=== PATIENT | female | born 1980 | race Caucasian/White ===

== ENCOUNTER 2022-10-13 09:06 | Outpatient (CLI) | payer OTHER, SELFPAY ==
[2022-10-13 09:44] LABS: Hematocrit 37.2 % (37.0-47.0); Hemoglobin 12.3 g/dL (12.0-15.0); Mean Corpuscular HGB Conc 33.1 g/dl (32-36); Mean Corpuscular Hemoglobin 31.5 pg (26-34); Mean Corpuscular Volume 95.4 fl (80-100); Mean Platelet Volume 10.8 fl (7.4-10.4); Platelet Count Result 176 k/mm3 (150-375); Red Cell Distribution Width 12.2 % (11.5-14.5); White Blood Count 4.8 K/mm3 (4.5-10.0)
[2022-10-13 09:56] LABS: Alanine Aminotransferase 13 U/L (6-35); Albumin Level 4.7 g/dL (3.5-5.1); Alkaline Phosphatase 51 U/L (38-126); Amylase 86 U/L (30-110); Anion Gap 4 mmol/L (8-16); Aspartate Amino Transferase 20 U/L (14-36); Bilirubin,Total 0.8 mg/dL (0.2-1.3); Blood Urea Nitrogen 11 mg/dL (7-17); Calcium 9.2 mg/dL (8.4-10.2); Carbon Dioxide 28 mmol/L (22-30); Chloride 107 mmol/L (98-107); Estimated Glomerular Filt Rate > 60; Glucose 88 mg/dL (65-110); Lipase 73 U/L (23-300); Potassium 4.2 mmol/L (3.4-5.0); Sodium 139 mmol/L (137-145)
[2022-10-13 10:59] LABS: Thyroid Stimulating Hormone Reflex 0.765 uIU/mL (0.465-4.68)
== END 2022-10-13 09:07 | disposition home or self-care (01) ==
PROVIDERS: PCP Family Medicine; Visit Provider Nurse Practitioner
DX: R10.13 Epigastric pain (principal)
CPT/HCPCS: 36415; 80053; 82150; 83690; 84443; 85027

== ENCOUNTER 2022-11-17 00:30 | Day surgery (SDC) | payer OTHER, SELFPAY ==
[2022-11-07 13:47] VITALS: BMI 22.6
--- NOTE | 2022-11-16 14:57 | P.HP_ITS ---
History of Present Illness History of Present Illness Consent: Risks, benefits, and alternatives have been discussed and questions answered. Patient agrees to proceed with procedure. Chief complaint: epigastric pain Narrative: Rizwana Castellanos is a 42 year old female Was referred for investigation of ulcer symptoms. She apparently had an ulcer when she was in college. For the past year she has had epigastric pain after eating. She denies nausea or vomit ing. Sscw-son-lgtunmz meds did not help. For the past several months she has been on pantoprazole 40 mg b.i.d. and famotidine with some improvement. She has early satiety but is not losing weight. Review of Systems Review of Systems: All systems reviewed & are unremarkable except as noted in HPI and below PMFSH Past Medical History Medical History Arthritis Chronic constipation Decreased appetite Early satiety Epigastric pain Hyperlipidemia Surgical History Surgical History H/O gynecological procedure mirena iud removal and reinsertion 01/10/2022 Social History Social History Smoking status: Never smoker Alcohol intake: current Drinks per week: 3 Substance use type: does not use Living arrangements: with family Spiritual care concerns: No Meds Home Medications and Allergies Home Medications Medication Instructions Recorded Confirmed Type sertraline 100 mg tablet 100 mg PO DAILY 01/10/22 11/07/22 History buspirone 10 mg tablet 10 mg PO .prn 10/13/22 11/07/22 History famotidine 20 mg tablet 20 mg PO BID 10/13/22 11/07/22 History loratadine 10 mg tablet 10 mg PO DAILY 10/13/22 11/07/22 History pantoprazole 40 mg tablet,delayed 40 mg PO BID #60 tabs 10/13/22 11/07/22 Rx release Allergies Allergy/AdvReac Type Severity Reaction Status Date / Time amoxicillin Allergy Severe Rash Uncoded 11/17/22 07:54 Daypro Allergy Severe Rash Uncoded 11/17/22 07:54 Exam Const: General: alert Orientation/consciousness: patient oriented x3 Resp: Auscultation: clear to auscultation bilaterally Cardio: Rhythm: regular rhythm GI: GI Palp: Yes Soft to palpation and No Tenderness to palpation present (GI) Neuro: General: patient oriented x3 Assessment and Plan Assessment and plan (1) Epigastric pain: Code(s): R10.13 - Epigastric pain Status: Acute
[2022-11-17 07:55] VITALS: BP 119/82; PULSE 63; RESP 17; TEMP 36.4; O2SAT 100
[2022-11-17] MEDS: LACTATED RINGERS 1,000 ML 150 ML IV CONT (08:09)
--- NOTE | 2022-11-17 08:51 | P.PNAN_ITS ---
Anes - Initial Pre Proc Eval Procedure: Operation Date: 11/17/22 09:15 Proposed Procedures p Esophagogastroduodenoscopy - Mitul Butt MD Date/Time: 11/17/22 08:51 Surgeon: Mitul Butt MD Pre Op Diagnosis: epigastric pain Patient Data Age: 42 Gender: F Height: 1.6 m Weight: 58.8 kg Last Vital Signs Temp 36.4 C 11/17/22 07:55 Pulse 63 11/17/22 07:55 Resp 17 11/17/22 07:55 BP 119/82 11/17/22 07:55 Pulse Ox 100 11/17/22 07:55 O2 Del Method Room Air 11/17/22 07:55 Allergies Allergy/AdvReac Type Severity Reaction Status Date / Time amoxicillin Allergy Severe Rash Uncoded 11/17/22 07:54 Daypro Allergy Severe Rash Uncoded 11/17/22 07:54 Home Medications Medication Instructions Recorded Confirmed Type sertraline 100 mg tablet 100 mg PO DAILY 01/10/22 11/07/22 History buspirone 10 mg tablet 10 mg PO .prn 10/13/22 11/07/22 History famotidine 20 mg tablet 20 mg PO BID 10/13/22 11/07/22 History loratadine 10 mg tablet 10 mg PO DAILY 10/13/22 11/07/22 History pantoprazole 40 mg tablet,delayed 40 mg PO BID #60 tabs 10/13/22 11/07/22 Rx release Patient hx anesthesia problems: none Family hx anesthesia problems: none Results Review: All pre-operative results and documents have been reviewed as part of the pre- operative evaluation. [facility] Past Medical History Medical History Arthritis Chronic constipation Decreased appetite Early satiety Epigastric pain Hyperlipidemia Surgical History Surgical History H/O gynecological procedure mirena iud removal and reinsertion 01/10/2022 Social History Social History Smoking status: Never smoker Alcohol intake: current Drinks per week: 3 Substance use type: does not use Living arrangements: with family Spiritual care concerns: No Anes - Eval Final PreProcedure Day of Procedure 11/17/22 08:51 Patient weight: normal Heart: regular rate and rhythm Lungs: clear to auscultation Airway: Mallampati scale class II Neurological: alert and oriented Last oral intake: >/= 8 hours ASA classification: II Emergent: no Anesthetic plan: proceed Anesthesia type and monitoring: general GIVS and standard monitoring Results Review: All pre-operative results and documents have been reviewed as part of the pre- operative evaluation. Informed Consent: The patient's anesthetic plan and its attendant risks and benefits were discussed with the patient/family/POA. Questions were solicited and answers provided to the satisfaction of the patient/family/POA.
[2022-11-17 09:01] VITALS: BP 100/69; PULSE 54; RESP 17; O2SAT 98
[2022-11-17 09:11] VITALS: BP 125/88; PULSE 56; RESP 16; O2SAT 100
[2022-11-17 09:21] VITALS: BP 128/89; PULSE 54; RESP 20; O2SAT 100
== END 2022-11-17 09:30 | disposition home or self-care (01) ==
PROVIDERS: PCP Family Medicine; Visit Provider Internal Medicine Gastroenterology
PROC: 0DJ08ZZ Inspection of Upper Intestinal Tract, Via Natural or Artificial Opening Endoscopic (ICD-10-PCS; CPT 43235; principal; 2022-11-17 09:15)
DX: R10.13 Epigastric pain (principal); R68.81 Early satiety; Z87.11 Personal history of peptic ulcer disease
CPT/HCPCS: 43239; 88305; J2704; J7120

== ENCOUNTER 2022-12-08 10:20 | Outpatient (CLI) | payer OTHER, SELFPAY ==
--- NOTE | ~2022-12-08 | US_ITS ---
US abdomen limited INDICATION: Epigastric pain with nausea PROCEDURE: Realtime right upper abdominal ultrasound. COMPARISON: No prior studies for comparison. FINDINGS: The pancreas is normal without focal mass or pancreatic ductal dilation. Liver echotexture is normal without focal mass or intrahepatic biliary dilatation. There is normal directional flow i n the portal vein. The gallbladder is normal without stones, gallbladder wall thickening or pericholecystic fluid. Comm on bile duct measures 2.5 mm. No sonographic Bonner's sign. IMPRESSION: 1: Normal limited abdominal ultrasound. Reviewed, dictated and finalized at location L.
== END 2022-12-08 10:21 | disposition home or self-care (01) ==
PROVIDERS: PCP Family Medicine; Visit Provider Nurse Practitioner
DX: R10.13 Epigastric pain (principal); R11.0 Nausea; R68.81 Early satiety
CPT/HCPCS: 76705

== ENCOUNTER 2022-12-16 07:27 | Outpatient (CLI) | payer OTHER, SELFPAY ==
--- NOTE | ~2022-12-16 | NM_ITS ---
EXAM: NM gastric emptying study DATE: 12/16/2022 12:10 CDT INDICATION: Epigastric pain TECHNIQUE: A gastric emptying study was performed using the methodology of Jan ROBERT, et al. J Nucl Med 2007; 48:568-572. The patient was given a meal consisting of 2 scrambled eggs labeled with 1.0 m Ci Tc-99m sulfur colloid, 2 slices of toast, two packages of jam, and approximately 120 mL of water. Simultaneous anterior and posterior 1-min images of the abdomen were obtained with the patient supine at multiple time points over a total period of 4 hours. The geometric mean of anterior and posterior views was determined, and the percentage retention was calculated for each time point. COMPARISON: Ultrasound dated 12/08/2022. FINDINGS: Gastric retention of the radiotracer-labeled meal was 35%, 13%, and 1% at the 1-hour, 2-ho ur, and 4-hour time points, respectively. With this technique, apparent rapid gastric emptying is sug gested by <30% gastric retention at 1 hour. Delayed gastric emptying is defined by gastric retention of >90% at 1 hour, >60% retention at 2 hours, or >10% retention at 4 hours. IMPRESSION: 1. Normal gastric emptying. Reviewed, dictated and finalized at location B. IMPRESSION: 1. Normal gastric emptying.
[2022-12-16 10:16] LABS: HIV 1/2 Ab P24 Ag Result Negative (Negative)
[2022-12-16 10:26] LABS: Hepatitis B Surface Antigen Negative (Negative)
[2022-12-16 10:31] LABS: HAV RESULT Negative (Negative)
[2022-12-16 10:44] LABS: Hepatitis C Virus Antibody Negative (Negative)
[2022-12-19 11:48] LABS: Rapid Plasma Reagin Non-Reactive (NonReactive)
== END 2022-12-16 07:28 | disposition home or self-care (01) ==
PROVIDERS: PCP Family Medicine; Referring Provider Obstetrics & Gynecology; Visit Provider Nurse Practitioner
DX: R68.81 Early satiety (principal); R63.0 Anorexia; R10.13 Epigastric pain; A64 Unspecified sexually transmitted disease; R11.0 Nausea
CPT/HCPCS: 36415; 78264; 86592; 86695; 86696; 86703; 86709; 86803; 87340; A9541; G0432

== ENCOUNTER 2025-06-11 14:28 | Outpatient (CLI) | payer OTHER, SELFPAY ==
--- OUTSIDE RECORDS SUMMARY | 2015-03-04 04:40 | XMS_ITS | Continuity of Care Document ---
Author Organization [facility] ter Address [address] [address] Phone Care Team Providers Care Director Of Social Services Name Role Phone Sinek OD, David Unavailable Unavailable Allergies, Adverse Reactions, Alerts Substance Reaction Status Criticality Penicillins Hives Active No Information Medications Medication Instructions Dosage Effective Dates (start - stop) Status Comments prednisolone acetate 1 % eye drops,suspension instill 1 drop by ophthalmic route 4 times every day OD - Active ofloxacin 0.3 % eye drops instill 1 drop by ophthalmic route 4 times a day starting the day prior to surgery and continue for 7 days - Active MAALOX ADVANCED (unknown strength) take 10 milliliter by oral route between meals and at bedtime as needed Not Available - Active Procedures Procedure Date POSTOP FOLLOW-UP VISIT Advance Directives Directive Yes / No Effective Date File Name No Information Encounters Encounter Description Practice Location Reason(s) For Visit Diagnoses Date Provider [facility], [address] [place] [address] Tyra Hammer, [place], [id number], tel:[phone] [place] vision is improved OD (chief complaint) Follow-up examination, following unspecified surgery Sinek David. [address] [place], [address], [place]. tel:[phone] [address] [place] [address] Tyra Hammer [place], [id number], tel:[phone] [place] pt states va is good OD (chief complaint) No Information Sinek David. [address] [place], [address], . tel:[phone] [address] [place] [address] Tyra Hammer [place], [id number], tel:[phone] [facility] patient slept well OD (chief complaint) No Information Christi Hernandez. [address] [place], [address], [place]. tel:[phone] [facility] [place], [address] [place], [id number], tel:[phone] [facility] No Information No Information [facility] [place], [facility] [place], [place], [id number], tel:[phone] [facility] No Information No Information [facility] [place], [facility] [address] [place], [address], tel:[phone] [facility] No Information [facility] [place] L. [facility] [place], [id number], [place]. tel:[phone] [address] [place] [address] [facility] [place], [address] [place], [place], [id number], tel:[phone] [facility] No Information No Information [facility], [facility] [place], [id number], tel:[phone] [place] cataract evaluation (chief complaint) Posterior subcapsular polar nonsenile cataract No Information [facility], [facility] [place], [place], [address], tel:[phone] [place] Change in vision OD (chief complaint) Cataract, Cortical Ileana Paz. [address] [place], [address], . tel:[phone] Family History Family Member Type Diagnosis Age At Onset Problem (finding) Family history of catar act Problem (finding) Family history of Diabe keke mellitus Problem (finding) Family history of strok e Problem (finding) Family history of Cance r, brain Payers Payer name Insurance type Covered republican ID Authoriza tion(s) No Information Social History Type Description Quantity Date Captured Comments Sex Female Smoking Status No Information Chief Complaint And Reason For Visit From encounter dated '03/04/2015 10:40'. vision is improved OD (chief complaint). Description: vision is improved OD Plan Of Treatment Date Type Action Status Patient Education Cataract Surgery: What to Expect at completed History Of Present Illness Encounter Date Complaint History Of Prese nt Illness vision is improved vision is imp roved OD no complaints no complaints OD pt states little achy last 2 day s pt states little achy last 2 days OD pt states va is good pt states v a is good OD Some discomfort this AM Some dis comfort this AM OD patient slept well patient slept well OD cataract evaluation The 34 year old female presents for evaluation of cataract evaluation in the right eye. It started about 6 month(s) ago. It occurs all the time. The onset was gradual. It affects distance vision. The symptom is constant. The condition is moderate. The condition is described as blurring. In addition, the condition is associated with driving with oncoming lights. Patient denies eye pain, flashes and floaters. Associated symptoms include: headaches. Change in vision OD Pt presents for an evaluation of a change in VA OD. Pt. states while taking allergy medications there was a drastic change in glass rx OD. Pts. VA went to 20/20 OD. Since stopping meds VA is worsening OD. Pt is photophobic. No flashes/floaters/ pain. Instructions Date Instruction Additional Infor orestes - Cataracts account for the patient's complaints. Discussed all risks, benefits, procedures and recovery. Patient understands changing glasses will not improve vision. Patient desires to have surgery, recommend phacoemulsification with intraocular lens right eye. RL 2. Discussed IOL options, consider ReSTOR IOL. Related to Posterior subcapsular polar nonsenile cataract - Ascan then CE IOL OD Related t o Posterior subcapsular polar nonsenile cataract - Subtle cortical le ns changes are seen in the right eye that are not seen in the left. A-scan and topography are normal. Cyclopegic refraction shows -0.50 SE OD and -3.00SE OS Related to Cataract, Cortical - Return in PRN. I w ill consult with one of the cataract surgeons to see if they think this is a reasonable explanation. Related to Cataract, Cortical Assessments Type Assessment Date No Information
--- OUTSIDE RECORDS SUMMARY | 2015-03-04 04:40 | XMS_ITS | Continuity of Care Document ---
Author Organization [facility] ter Address [address] [place] [address] Phone Care Team Providers Care Freight Forwarder Name Role Phone Sinek OD, David Unavailable [...] Location Reason(s) For Visit Diagnoses Date Provider [facility], [address] [place] [address] Tyra Hammer, [place], [id number], tel:[phone] [place] vision is improved OD (chief complaint) Follow-up examination, following unspecified surgery Sinek David. [address] [email or web address], [address], [place]. tel:[phone] [place] [address] Tyra Hammer [place], [id number], tel:[phone] Mass[place] pt states va is good OD (chief complaint) No Information Sinek David. [address] [place], [address], . tel:[phone] [address] [place] [address] Tyra Hammer [place], [id number], tel:[phone] [facility] patient slept well OD (chief complaint) No Information Christi Hernandez. [address] [place], [address], [place]. tel:[phone] [facility] [place], [address] [place], [address], tel:[phone] [facility] No Information No Information [facility] [place], [facility] [place], [place], [address], tel:[phone] [facility] No Information No Information [facility] [place], [facility] [address] [place], [address], tel:[phone] [facility] No Information [facility] [place] L. [facility] [place], [id number], [place]. tel:[phone] [address] [place] [address] [facility] [place], [address] [place], [place], [id number], tel:[phone] [facility] No Information No Information [facility], [facility] [place], [address], tel:[phone] [place] cataract evaluation (chief complaint) Posterior subcapsular polar nonsenile cataract No Information [facility], [facility] [place], [place], [address], tel:[phone] [place] Change in vision OD (chief complaint) Cataract, Cortical Ileana Paz. [address] [place], [address], . tel:[phone] Family History Family Member Type Diagnosis Age At Onset Problem (finding) Family history of catar act Problem (finding) Family history of Diabe keke mellitus Problem (finding) Family history of strok e Problem (finding) Family history of Cance r, brain Payers Payer name Insurance type Covered constitution party ID Authoriza tion(s) No Information Social History [...]
--- OUTSIDE RECORDS SUMMARY | 2015-03-04 04:40 | XMS_ITS | Continuity of Care Document ---
Author Organization [facility] ter Address [address] [place] [address] Phone Care Team Providers Care Wallpaperer Helper Name Role Phone Sinek OD, David Unavailable [...] Location Reason(s) For Visit Diagnoses Date Provider [facility], [address] [place] [address] Tyra Hammer, [place], [id number], tel:[phone] [place] vision is improved OD (chief complaint) Follow-up examination, following unspecified surgery Sinek David. [address] [place], [address], [place]. tel:[phone] [address] [place] [address] Tyra Hammer [place], [id number], tel:[phone] [place] pt states va is good OD (chief complaint) No Information Sinek David. [address] [place], [address], . tel:[phone] [address] [place] [address] Tyra Hammer [place], [id number], tel:[phone] [facility] patient slept well OD (chief complaint) No Information Christi Hernandez. [address] [place], [address], [place]. tel:[phone] [facility] [place], [address] [place], [id number], tel:[phone] [facility] No Information No Information [facility] [place], [facility] [place], [place], [address], tel:[phone] [facility] No Information No Information [facility] [place], [facility] [address] [place], [address], tel:[phone] [facility] No Information [facility] [place] L. [facility] [place], [id number], [place]. tel:[phone] [place] [address] [facility] [place], [address] [place], [place], [address], tel:[phone] [facility] No Information No Information [facility], [facility] [address] [place], [place], [address], tel:[phone] [place] cataract evaluation (chief complaint) Posterior subcapsular polar nonsenile cataract No Information [facility], [facility] [place], [place], [address], tel:[phone] [place] Change in vision OD (chief complaint) Cataract, Cortical Ileana Paz. [address] [place], [address], . tel:[phone] Family History Family Member Type Diagnosis Age At Onset Problem (finding) Family history of catar act Problem (finding) Family history of Diabe keke mellitus Problem (finding) Family history of strok e Problem (finding) Family history of Cance r, brain Payers Payer name Insurance type Covered democrat ID Authoriza tion(s) No Information Social History [...]
--- OUTSIDE RECORDS SUMMARY | 2015-03-04 04:40 | XMS_ITS | Continuity of Care Document ---
Author Organization [facility] ter Address [address] [place] [address] Phone Care Team Providers Care Business Continuity Director Name Role Phone Sinek OD, David Unavailable [...] Location Reason(s) For Visit Diagnoses Date Provider [facility], [address] [place] [address] Tyra Hammer, [place], [id number], tel:[phone] [place] vision is improved OD (chief complaint) Follow-up examination, following unspecified surgery Sinek David. [address] [place], [address], [place]. tel:[phone] [place] [address] Tyra Hammer [place], [id number], tel:[phone] Massimo pt states va is good OD (chief complaint) No Information Sinek David. [address] [place], [address], . tel:[phone] [address] [place] [address] Tyra Hammer [place], [id number], tel:[phone] [facility] patient slept well OD (chief complaint) No Information Christi Hernandez. [address] [place], [address], [place]. tel:[phone] [facility] [place], [address] [place], [address], tel:[phone] [facility] No Information No Information [facility] [place], [facility] [place], [place], [address], tel:[phone] [facility] No Information No Information [facility] [place], [facility] [address] [place], [place], [address], tel:[phone] [facility] No Information [facility] [place] L. [facility] [place], [place], [address], [place]. tel:[phone] [place] [address] [facility] [place], [address] [place], [place], [address], tel:[phone] [facility] No Information No Information [facility], [facility] [place], [place], [address], tel:[phone] [place] cataract evaluation (chief complaint) Posterior subcapsular polar nonsenile cataract No Information [facility], [facility] [place], [place], [address], tel:[phone] [place] Change in vision OD (chief complaint) Cataract, Cortical Ileana Paz. [address] [place], [address], . tel:[phone] Family History Family Member Type Diagnosis Age At Onset Problem (finding) Family history of catar act Problem (finding) Family history of Diabe keke mellitus Problem (finding) Family history of strok e Problem (finding) Family history of Cance r, brain Payers Payer name Insurance type Covered green party ID Authoriza tion(s) No Information Social [...]
--- OUTSIDE RECORDS SUMMARY | 2015-03-04 04:40 | XMS_ITS | Continuity of Care Document ---
Author Organization [facility] ter Address [address] [address] [facility] [place] [address] Phone Care Team Providers Care Linux System Administrator Name Role Phone Sinek OD, David Unavailable [...] Location Reason(s) For Visit Diagnoses Date Provider [facility], [address] [place] [address] Tyra Hammer, [place], [id number], tel:[phone] [place] vision is improved OD (chief complaint) Follow-up examination, following unspecified surgery Sinek David. [address] [place], [address], [place]. tel:[phone] [address] [place] [address] Tyra Hammer [place], [id number], tel:[phone] Mass[place] pt states va is good OD (chief complaint) No Information Sinek David. [address] [place], [address], . tel:[phone] [place] [address] Tyra Hammer [place], [id number], tel:[phone] [facility] patient slept well OD (chief complaint) No Information Christi Hernandez. [address] [place], [address], [place]. tel:[phone] [facility] [place], [address] [place], [address], tel:[phone] [facility] No Information No Information [facility] [place], [facility] [address] [place], [address], tel:[phone] [facility] No Information No Information [facility] [place], [facility] [address] [place], [address], tel:[phone] [facility] No Information [facility] [place] L. [facility] [address] [place], [address], [place]. tel:[phone] [place] [address] [facility] [place], [address] [place], [address], tel:[phone] [facility] No Information No Information [facility], [facility] [address] [place], [address], tel:[phone] [place] cataract evaluation (chief complaint) Posterior subcapsular polar nonsenile cataract No Information [facility], [facility] [place], [place], [address], tel:[phone] [place] Change in vision OD (chief complaint) Cataract, Cortical Ileana Paz. [address] [place], [address], . tel:[phone] Family History Family Member Type Diagnosis Age At Onset Problem (finding) Family history of Cance r, brain Problem (finding) Family history of strok e Problem (finding) Family history of Diabe keke mellitus Problem (finding) Family history of catar act Payers Payer name Insurance type Covered republican [...] no complaints no complaints OD pt states va is good pt states v a is good OD pt states little achy last 2 day s pt states little achy last 2 days OD patient slept well patient slept well OD Some discomfort this AM Some dis comfort this AM OD cataract evaluation The 34 year old [...]
--- OUTSIDE RECORDS SUMMARY | 2015-03-04 04:40 | XMS_ITS | Continuity of Care Document ---
Author Organization [facility] ter Address [address] [place] [address] Phone Care Team Providers Care Machine Hoop Maker Helper Name Role Phone Sinek OD, David [...] Location Reason(s) For Visit Diagnoses Date Provider [facility], [address] [place] [address] Tyra Hammer, [place], [id number], tel:[phone] [place] vision is improved OD (chief complaint) Follow-up examination, following unspecified surgery Sinek David. [address] [place], [address], [place]. tel:[phone] [place] [address] Tyra Hammer [place], [address], tel:[phone] [place] pt states va is good OD (chief complaint) No Information Sinek David. [address] [place], [address], . tel:[phone] [address] [place] [address] Tyra Hammer [place], [id number], tel:[phone] [facility] patient slept well OD (chief complaint) No Information Christi Hernandez. [address] [place], [address], [place]. tel:[phone] [facility] [place], [address] [place], [address], tel:[phone] [facility] No Information No Information [facility] [place], [facility] [place], [place], [address], tel:[phone] [facility] No Information No Information [facility] [place], [facility] [address] [place], [place], [address], tel:[phone] [facility] No Information [facility] [place] L. [facility] [address] [place], [address], [place]. tel:[phone] [place] [address] [facility] [place], [address] [place], [place], [address], tel:[phone] [facility] No Information No Information [facility], [facility] [address] [place], [place], [address], tel:[phone] [place] cataract evaluation (chief complaint) Posterior subcapsular polar nonsenile cataract No Information [facility], [facility] [place], [place], [address], tel:[phone] [place] Change in vision OD (chief complaint) Cataract, Cortical Ileana Paz. [address] [place], [address], . tel:[phone] Family History Family Member Type Diagnosis Age At Onset Problem (finding) Family history of catar act Problem (finding) Family history of Diabe keke mellitus Problem (finding) Family history of strok e Problem (finding) Family history of Cance r, brain Payers Payer name Insurance type Covered alliance party ID Authoriza tion(s) No Information Social [...]
--- OUTSIDE RECORDS SUMMARY | 2015-03-04 04:40 | XMS_ITS | Continuity of Care Document ---
Author Organization [facility][Note 3] ter Address [address] [facility] [place] [address] Phone Care Team Providers Care Fourdrinier Wire Weaver Name Role Phone Sinek OD, David Unavailable [...] Location Reason(s) For Visit Diagnoses Date Provider [facility], [address] [place] [address] Tyra Hammer, [place], [id number], tel:[phone] Massimo vision is improved OD (chief complaint) Follow-up examination, following unspecified surgery Sinek David. [address] [place], [address], [place]. tel:[phone] [address] [place] [address] Tyra Hammer [place], [id number], tel:[phone] Massimo pt states va is good OD (chief complaint) No Information Sinek David. [address] [place], [address], . tel:[phone] [address] [place] [address] Tyra Hammer [place], [id number], tel:[phone] [facility] slept well OD (chief complaint) No Information Christi Hernandez. [address] [place], [address], [place]. tel:[phone] [facility] [place], [address] [place], [place], [id number], tel:[phone] [facility] No Information No Information [facility] [place], [facility] [place], [id number], tel:[phone] [facility] No Information No Information [facility] [place], [facility] [address] [place]ita [place], [place], [address], tel:[phone] [facility] No Information [facility] [place] L. [facility] [address] [place], [place], [address], [place]. tel:[phone] [address] [place] [address] [facility] [place], [address] [place], [place], [address], tel:[phone] [facility] No Information No Information [facility], [facility] [address] [place], [place], [address], tel:[phone] Massimo cataract evaluation (chief complaint) Posterior subcapsular polar nonsenile cataract No Information [facility], [facility] [place], [place], [address], tel:[phone] [place]imo Change in vision OD (chief complaint) Cataract, Cortical Ileana Paz. [address] [place], [address], . tel:[phone] Family History Family Member Type Diagnosis [...]
--- OUTSIDE RECORDS SUMMARY | 2015-03-04 04:40 | XMS_ITS | Continuity of Care Document ---
Author Organization [facility] ter Address [address] [place] [address] Phone Care Team Providers Care Amphibious Operations Officer Name Role Phone Sinek OD, David Unavailable [...] Reason(s) For Visit Diagnoses Date Provider [facility], [address] [place] [address] Tyra Hammer, [place], [id number], tel:[phone] Massimo vision is improved OD (chief complaint) Follow-up examination, following unspecified surgery Sinek David. [address] [place], [address], [place]. tel:[phone] [address] [place] [address] Tyra Hammer [place], [id number], tel:[phone] Massimo pt states va is good OD (chief complaint) No Information Sinek David. [address] [place], [address], . tel:[phone] [address] [place] [address] Tyra Hammer [place], [id number], tel:[phone] [facility] slept well OD (chief complaint) No Information Christi Hernandez. [address] [place], [address], [place]. tel:[phone] [facility] [place], [address] [place], [place], [address], tel:[phone] [facility] No Information No Information [facility] [place], [facility] [place], [address], tel:[phone] [facility] No Information No Information [facility] [place], [facility] [address] [place], [place], [address], tel:[phone] [facility] No Information [facility] [place] L. [facility]0 [address] [place], [place], [address], [place]. tel:[phone] [address] [place] [address] [facility] [place], [address] [place], [place], [address], tel:[phone] [facility] No Information No Information [facility], [facility] [address] [place], [place], [address], tel:[phone] Massimo cataract evaluation (chief complaint) Posterior subcapsular polar nonsenile cataract No Information [facility], [facility] [place], [place], [address], tel:[phone] [place] Change in vision OD (chief complaint) Cataract, Cortical Ileana Paz. [address] [place], [address], . tel:[phone] Family History Family Member Type Diagnosis [...]
--- OUTSIDE RECORDS SUMMARY | 2015-03-04 04:40 | XMS_ITS | Continuity of Care Document ---
Author Organization [facility] ter Address [address] [place] [address] Phone Care Team Providers Care Whiteprinting Machine Operator Name Role Phone Sinek OD, David Unavailable [...] Location Reason(s) For Visit Diagnoses Date Provider [facility], [address] [place] [address] Tyra Hammer, [place], [id number], tel:[phone] Mass[place] vision is improved OD (chief complaint) Follow-up examination, following unspecified surgery Sinek David. [address] [place], [address], [place]. tel:[phone] [address] [place] [address] Tyra Hammer [place], [id number], tel:[phone] Massimo pt states va is good OD (chief complaint) No Information Sinek David. [address] [place], [address], . tel:[phone] [address] [place] [address] Tyra Hammer [place], [id number], tel:[phone] [facility] slept well OD (chief complaint) No Information Christi Hernandez. [address] [place], [address], [place]. [phone] [facility] [place], [address] [place], [address], tel:[phone] [facility] No Information No Information [facility] [place], [facility] [place], [place], [address], tel:[phone] [facility] No Information No Information [facility] [place], [facility] [address] [place], [place], [address], tel:[phone] [facility] No Information [facility] [place] L. [facility]0 [address] [place], [address], [place]. tel:[phone] [place] [address] [facility] [place], [address] [place], [place], [id number], tel:[phone] [facility] No Information No Information [facility], [facility]0 [address] [place], [address], tel:[phone] Massimo cataract evaluation (chief complaint) Posterior subcapsular polar nonsenile cataract No Information [facility], [facility] [place], [place], [address], tel:[phone] Masismo Change in vision OD (chief complaint) Cataract, Cortical Ileana Paz. [address] [place], [address], . tel:[phone] Family History Family Member Type Diagnosis [...]
--- OUTSIDE RECORDS SUMMARY | 2015-03-04 04:40 | XMS_ITS | Continuity of Care Document ---
Author Organization [facility] ter Address [address] [facility] [place] [address] Phone Care Team Providers Care Traffic Circuit Engineer Name Role Phone Sinek OD, David Unavailable [...] Diagnoses Date Provider [facility], [address] [place] [address] Tyra Hammer, [place], [id number], tel:[phone] Mass[place] vision is improved OD (chief complaint) Follow-up examination, following unspecified surgery Sinek David. [address] [place], [address], [place]. tel:[phone] [address] [place] [address] Tyra Hammer [place], [id number], tel:[phone] Massimo pt states va is good OD (chief complaint) No Information Sinek David. [address] [place], [address], . tel:[phone] [address] [place] [address] Tyra Hammer [place], [id number], tel:[phone] [facility] patient slept well OD (chief complaint) No Information Christi Hernandez. [address] [place], [address], [place]. tel:[phone] [facility] [place], [address] [place], [place], [address], tel:[phone] [facility] No Information No Information [facility] [place], [facility] [place], [place], [address], tel:[phone] [facility] No Information No Information [facility] [place], [facility] [address] [place]ita [place], [address], tel:[phone] [facility] No Information [facility] [place] L. [facility]0 [address] [place], [place], [address], [place]. tel:[phone] [address] [place] [address] [facility] [place], [address] [place], [place], [address], tel:[phone] [facility] No Information No Information [facility], [facility] [address] [place], [place], [address], tel:[phone] Massimo cataract evaluation (chief complaint) Posterior subcapsular polar nonsenile cataract No Information [facility], [facility] [place], [place], [address], tel:[phone] [place]imo Change in vision OD (chief complaint) Cataract, Cortical Ileana Paz. [address] [place], [address], . tel:[phone] Family History Family Member Type Diagnosis Age At Onset Problem (finding) Family history of catar act Problem (finding) Family history of Diabe keke mellitus Problem (finding) Family history of strok e Problem (finding) Family history of Cance r, brain Payers Payer name Insurance type Covered libertarian ID Authoriza tion(s) No Information Social History [...]
--- OUTSIDE RECORDS SUMMARY | 2015-03-04 04:40 | XMS_ITS | Continuity of Care Document ---
Author Organization [facility] ter Address [address] [place] [address] Phone Care Team Providers Care International Organizer Name Role Phone Sinek OD, David Unavailable [...] Location Reason(s) For Visit Diagnoses Date Provider [facility], [address] [place] [address] Tyra Hammer, [place], [id number], tel:[phone] Massimo vision is improved OD (chief complaint) Follow-up examination, following unspecified surgery Sinek David. [address] [place], [address], [place]. tel:[phone] [address] [place] [address] Tyra Hammer [place], [id number], tel:[phone] Massimo pt states va is good OD (chief complaint) No Information Sinek David. [address] [place], [address], . tel:[phone] [address] [place] [address] Tyra Hammer [place], [address], tel:[phone] [facility] slept well OD (chief complaint) No Information Christi Hernandez. [address] [place], [address], [place]. tel:[phone] [facility] [place], [address] [place] [address] [place], [address], tel:[phone] [facility] No Information No Information [facility] [place], [facility] [place], [address], tel:[phone] [facility] No Information No Information [facility] [place], [facility] [address] [place] Chiquita [place], [place], [address], tel:[phone] [facility] No Information [facility] [place] L. [facility] [address] [place], [place], [address], [place]. tel:[phone] [address] [place] [address] [facility] [place], [address] [place], [place], [address], tel:[phone] [facility] No Information No Information [facility], [facility] [address] [place], [place], [address], tel:[phone] Massimo cataract evaluation (chief complaint) Posterior subcapsular polar nonsenile cataract No Information [facility], [facility] [place], [place], [address], tel:[phone] [place] Change in vision OD (chief complaint) Cataract, Cortical Ileana Paz. [address] [place], [address], . tel:[phone] Family History Family Member Type Diagnosis [...]
--- OUTSIDE RECORDS SUMMARY | 2015-03-04 04:40 | XMS_ITS | Continuity of Care Document ---
Author Organization [facility] ter Address [address] [facility] [place] [address] Phone Care Team Providers Care Human Resources Intern Name Role Phone Sinek OD, David Unavailable [...] Location Reason(s) For Visit Diagnoses Date Provider [facility], [address] [place] [address] Tyra Hammer, [place], [id number], tel:[phone] Massimo vision is improved OD (chief complaint) Follow-up examination, following unspecified surgery Sinek David. [address] [place], [address], [place]. tel:[phone] [address] [place] [address] Tyra Hammer [place], [id number], tel:[phone] Massimo pt states va is good OD (chief complaint) No Information Sinek David. [address] [place], [address], . tel:[phone] [address] [place] [address] Tyra Hammer [place], [id number], tel:[phone] [facility] slept well OD (chief complaint) No Information Christi Hernandez. [address] [place], [address], [place]. tel:[phone] [facility] [place], [address] [place], [address], tel:[phone] [facility] No Information No Information [facility] [place], [facility] [place], [place], [address], tel:[phone] [facility] No Information No Information [facility] [place], [facility] [address] [place]ita [place], [place], [address], tel:[phone] [facility] No Information [facility] [place] L. [facility]0 [address] [place], [address], [place]. tel:[phone] [place] [address] [facility] [place], [address] [place], [place], [address], tel:[phone] [facility] No Information No Information [facility], [facility]0 [address] [place], [place], [address], tel:[phone] Massimo cataract evaluation (chief complaint) Posterior subcapsular polar nonsenile cataract No Information [facility], [facility] [place], [place], [address], tel:[phone] [place] Change in vision OD (chief complaint) Cataract, Cortical Ileana Paz. [address] [place], [address], . tel:[phone] Family History Family Member Type Diagnosis [...]
--- OUTSIDE RECORDS SUMMARY | 2015-03-04 04:40 | XMS_ITS | Continuity of Care Document ---
Author Organization [facility] ter Address [address] [place] [address] Phone Care Team Providers Care Line Assembler Name Role Phone Sinek OD, David Unavailable [...] Provider [facility], [address] [place] [address] Tyra Hammer, [place], [address], tel:[phone] Massimo vision is improved OD (chief complaint) Follow-up examination, following unspecified surgery Sinek David. [address] [place], [address], [place]. tel:[phone] [address] [place] [address] Tyra Hammer [place], [address], tel:[phone] Massimo pt states va is good OD (chief complaint) No Information Sinek David. [address] [place], [address], . tel:[phone] [address] [place] [address] Tyra Hammer [place], [address], tel:[phone] [facility] slept well OD (chief complaint) No Information Christi Hernandez. [address] [place], [address], [place]. tel:[phone] [facility] [place], [address] [place], [place], [address], tel:[phone] [facility] No Information No Information [facility] [place], [facility] [place], [place], [address], tel:[phone] [facility] No Information No Information [facility] [place], [facility] [address] [place], [place], [address], tel:[phone] [facility] No Information [facility] [place] L. [facility]0 [address] [place]ra [place], [place], [address], [place]. tel:[phone] [address] [place] [address] [facility] [place], [address] [place], [place], [address], tel:[phone] [facility] No Information No Information [facility], [facility]0 [address] [place]ra [place], [place], [address], tel:[phone] Massimo cataract evaluation (chief complaint) Posterior subcapsular polar nonsenile cataract No Information [facility], [facility] [place], [place], [address], tel:[phone] [place] Change in vision OD (chief complaint) Cataract, Cortical Ileana Paz. [address] [place], [address], . tel:[phone] Family History Family Member Type Diagnosis [...]
--- NOTE | ~2025-06-11 | MM_ITS ---
EXAMINATION: MM screening jakob BI w wing HISTORY: Screening TECHNIQUE: Craniocaudal and mediolateral oblique 3-D tomosynthesis images were obtained and synthetic 2-D images were generated. CAD analysis was submitted and interpreted. COMPARISON: Baseline BREAST PARENCHYMAL COMPOSITION: Dense: The breasts are extremely dense, which lowers the sensitivity of mammography. FINDINGS: There is no evidence of suspicious mass, calcification, or architectural distortion to suggest malignancy in either breast. IMPRESSION: 1. No mammographic evidence of malignancy. 2. Recommend routine screening mammography in one year. BI-RADS Category 1: Negative Reviewed, dictated and finalized at location B. ATTENDANT
--- OUTSIDE RECORDS SUMMARY | 2025-06-11 22:08 | XMS_ITS | Data Portability ---
Author Organization [place] [facility] [employer], Main Office Address [address] [place] [address] Care Team Providers Care Concreting Supervisor Name Role Phone DANIEL MAJOR Primary Care Provider Assessment Encounter Date Assessment Date Assessment LastModified by Organization Details LastModified Time 10/02/2024 10/02/2024 43 yo F with - WELL ADULT VISIT - PIGMENTED SKIN LESIONS - HLD - ANXIETY - GERD - CHRONIC NECK PAIN - CHRONIC BACK PAIN - B/L HAND PAIN, chronic - POSITIVE YAYA (False positive) - H/O CATARACT - H/O HYPERCALEMIA Annual labs: 03/30/23. NM gastric scan: 12/16/22. US abdo: 12/08/22. Annual labs: 04/05/22. X-ray C,T,L spine: 10/12/21. RA workup: 05/14/21. YAYA, uric acid: 04/15/21. X-ray b/l hands: 04/01/21. Annual labs: 04/01/21. D/w pt in detail about her findings, recent labs & imagines and further plan of care. Will do routine labs. Will refer pt to Derm. All questions answered for pt. Meds as directed. Cont heat pack as directed prn. Diet and exercise explained. F/u with Derm as per schedule. Cont f/u with Counsellor as per schedule. Cont f/u with Ophtho as per schedule. Cont f/u with GI as per schedule. Pt has done PT in the past. Educated pt about alarming symptoms to monitor at home and call us back Or get checked in ED. Offered to refer to Rheumat; but pt declined. Pt declined for MRI/pain specialist referral. HM: WWE - 05/16, normal as per pt. Cont f/u with Gyne as per schedule. Mammo - 06/06/24, normal. EGD - 11/17/22, normal as per pt. Cont f/u with GI as per schedule. Flu - 06/16. Tdap - 03/31/21. Gardasil - Pt declined. F/u in 2-3 weeks. Annual labs in 10/16. [email or web address] Not available 10/02/2024 16:59:20 10/24/2024 10/24/2024 44 yo F with - LEUKOPENIA, new - HYPERCALEMIA - HLD - ANXIETY - GERD - CHRONIC NECK PAIN - CHRONIC BACK PAIN - B/L HAND PAIN, chronic - POSITIVE YAYA (False positive) - PIGMENTED SKIN LESIONS - H/O CATARACT Annual labs: 03/30/23. NM gastric scan: 12/16/22. US abdo: 12/08/22. Annual labs: 04/05/22. X-ray C,T,L spine: 10/12/21. RA workup: 05/14/21. YAYA, uric acid: 04/15/21. X-ray b/l hands: 04/01/21. Annual labs: 04/01/21. D/w pt in detail about her findings, recent labs & imagines and further plan of care. All questions answered for pt. Meds as directed. Cont heat pack as directed prn. Diet and exercise explained. F/u with Derm as per schedule. Cont f/u with Counsellor as per schedule. Cont f/u with Ophtho as per schedule. Cont f/u with GI as per schedule. Pt has done PT in the past. Educated pt about alarming symptoms to monitor at home and call us back Or get checked in ED. Offered to refer to Rheumat; but pt declined. Pt declined for MRI/pain specialist referral. HM: WWE - 05/16, normal as per pt. Cont f/u with Gyne as per schedule. Mammo - 06/06/24, normal. EGD - 11/17/22, normal as per pt. Cont f/u with GI as per schedule. Flu - 06/16. Tdap - 03/31/21. Gardasil - Pt declined. F/u in 3 months. CBC, Ca, PTH before next visit. Annual labs in 10/16. [email or web address] Not available 10/24/2024 09:39:32 01/20/2025 01/20/2025 44 yo F with - LEUKOPENIA, resolved - HYPERCALEMIA, resolved - HLD - ANXIETY - GERD - CHRONIC NECK PAIN - CHRONIC BACK PAIN - B/L HAND PAIN, chronic - POSITIVE YAYA (False positive) - PIGMENTED SKIN LESIONS - H/O CATARACT Annual labs: 10/03/24. Annual labs: 03/30/23. NM gastric scan: 12/16/22. US abdo: 12/08/22. Annual labs: 04/05/22. X-ray C,T,L spine: 10/12/21. RA workup: 05/14/21. YAYA, uric acid: 04/15/21. X-ray b/l hands: 04/01/21. Annual labs: 04/01/21. D/w pt in detail about her findings, recent labs & imagines and further plan of care. All questions answered for pt. Meds as directed. Cont heat pack as directed prn. Diet and exercise explained. Cont f/u with Derm as per schedule. Cont f/u with Counsellor as per schedule. Cont f/u with Ophtho as per schedule. Cont f/u with GI as per schedule. Pt has done PT in the past. Educated pt about alarming symptoms to monitor at home and call us back Or get checked in ED. Offered to refer to Rheumat; but pt declined. Pt declined for MRI/pain specialist referral. HM: WWE - 05/16, normal as per pt. Cont f/u with Gyne as per schedule. Mammo - 06/06/24, normal. EGD - 11/17/22, normal as per pt. Cont f/u with GI as per schedule. Flu - 06/16. Tdap - 03/31/21. Gardasil - Pt declined. F/u in 4-6 months. Annual labs in 10/16. [email or web address] Not available 01/20/2025 10:41:04 Plan of Treatment Reminders Order Date Submit Date Provider Last Modified By Organization Details Last Modified Time Details Appointments Any 15 2024 08:00A Mike Major MD Not available Not available Not available Lab PTH (parathyr oid hormone), intact + calcium, serum or plasma [address] (Lab), [address] [place], [address], 01/23/2025 12:50:15 CBC w/ auto diff 2024 025 [facility] (Lab), [address] [place], [address], 01/15/2025 12:59:55 vitamin D3, 25-hydrox y, serum 2024 025 [facility] (Lab), [address] [place], [address], 10/03/2024 13:37:17 vitamin B12 + folate, serum or blood [address] (Lab), [address] [place], [address], 10/25/2024 09:17:44 HbA1c (hemoglob in A1c), blood [address] (Lab), [address] [place], [address], 10/25/2024 09:17:44 CBC w/ auto diff 2024 025 [facility] (Lab), [address] [place], [address], 10/03/2024 12:53:24 CMP, serum or plasma 2024 025 [facility] (Lab), [address] [place], [address], 10/03/2024 13:25:20 lipid panel, serum 2024 025 [facility] (Lab), [address] [place], [address], 10/03/2024 13:25:24 TSH, serum, reflex free T4 [address] (Lab), [address] [place], [address], 10/25/2024 09:17:43 urinalysi s complete, reflex culture [address] (Lab), [address] [place], [address], 10/25/2024 09:17:44 Referral dermatolo gist referral - Please call patient to schedule an appointme nt. Thank you. 2024 025 [email or web address] Renetta Saenz MD (Dermatology) , [address], [address], [place], [address], 12/31/2024 09:33:01 Procedures None recorded. Surgeries None recorded. Imaging None recorded. Medication Orders sertralin e 100 mg tablet 2024 025 [facility] #87896, [address], [place], [id number], 01/20/2025 10:39:08 buspirone 10 mg tablet 2024 025 [facility] #68069, [address], [place], [id number], 01/20/2025 10:39:06 atorvasta tin 10 mg tablet 2024 025 [facility] #13031, [address], [place], [id number], 01/20/2025 10:39:00 sertralin e 100 mg tablet 2024 025 [email or web address] [facility] #76868, [address], [place], [id number], 10/24/2024 09:34:33 buspirone 10 mg tablet 2024 025 [facility] #13353, [address], [place], [place], [id number], 10/24/2024 09:34:17 atorvasta tin 10 mg tablet 2024 025 [facility] #52740, [address], [place], [place], [id number], 10/24/2024 09:34:17 sertralin e 100 mg tablet 2024 025 [facility] #67207, [address] [facility], [place], [place], [id number], 10/02/2024 16:52:48 buspirone 10 mg tablet 2024 025 [facility] #27512, [address], [place], [place], [id number], 10/02/2024 16:52:46 atorvasta tin 10 mg tablet 2024 025 [facility] #93617, [address] [facility], [place], [place], [id number], 10/02/2024 16:52:47 cephalexi n 500 mg capsule 2024 025 [email or web address] [facility] #87608, [address] [facility], [place], [place], [id number], 10/02/2024 16:56:30 Patient TargetsNo targets recorded. Patient Instructions Encounter Date Encounter Id Patient Instructions Last Modified By Organization Details Last Modified Time 10/02/2024 [id number] high cholesterol : care instructions [email or web address] Not available 10/02/2024 16:52:36 10/24/2024 [id number] high cholesterol : care instructions [email or web address] Not available 10/24/2024 09:34:11 01/20/2025 [id number] high cholesterol : care instructions [email or web address] Not available 01/20/2025 10:38:43 Reason for Referral Face And Fill Packer Referral for P igmented skin lesion Please call patient to schedule an appointment. Thank you. Referring Physician: Daniel Major, Family Medicine, Encounter Date: 10/02/2024 Results Created Date Observation Date Name Description Value Unit Range Abnormal Flag Note LastModifiedBy Organization Detail LastModifiedTime 10/04/1910/03/2024 CBC/C OMPLE TE BLD COUNT W/DIF F white blood cells 3.8 x10'3 /uL 4.2-10 .[address] [facility] (Lab) [address] [place], [address], 10/03/2024 12:53:24 10/04/19 25 10/03/2024 CBC/C OMPLE TE BLD COUNT W/DIF F red blood cells 4.42 x10'6 /uL 3.80-[address] [facility] (Lab) [address] [place], [address], 10/03/2024 12:53:24 10/04/19 25 10/03/2024 CBC/C OMPLE TE BLD COUNT W/DIF F hemoglobin 14.4 g/dL 12.0-[address] [facility] (Lab) [address] [place], [address], 10/03/2024 12:53:24 10/04/19 25 10/03/2024 CBC/C OMPLE TE BLD COUNT W/DIF F hematocrit 42.4 % 35.7-[address] [facility] (Lab) [address] [place], [address], 10/03/2024 12:53:24 10/04/19 25 10/03/2024 CBC/C OMPLE TE BLD COUNT W/DIF F mean red cell volume 95.9 fL 82.0-[address] [facility] (Lab) [address] [place], [address], 10/03/2024 12:53:24 10/04/19 25 10/03/2024 CBC/C OMPLE TE BLD COUNT W/DIF F mean red cell hemoglobin 32.6 pg 27.0-[address] [facility] (Lab) [address] [place], [address], 10/03/2024 12:53:24 10/04/19 25 10/03/2024 CBC/C OMPLE TE BLD COUNT W/DIF F mean RBC HGB concentratio n 34.0 g/dL 31.0-[address] [facility] (Lab) [address] [place], [address], 10/03/2024 12:53:24 10/04/19 25 10/03/2024 CBC/C OMPLE TE BLD COUNT W/DIF F red cell distribution width 12.5 % 11.8-[address] [facility] (Lab) [address] [place], [address], 10/03/2024 12:53:24 10/04/19 25 10/03/2024 CBC/C OMPLE TE BLD COUNT W/DIF F platelets 210 x10'3 /uL 150-[address] [facility] (Lab) [address] [place], [address], 10/03/2024 12:53:24 10/04/19 25 10/03/2024 CBC/C OMPLE TE BLD COUNT W/DIF F mean platelet volume 11.4 fL 9.0-[address] [facility] (Lab) [address] [place], [address], 10/03/2024 12:53:24 10/04/19 25 10/03/2024 CBC/C OMPLE TE BLD COUNT W/DIF F neutrophils 43.1 % 39.0-7 2.0 Not Available [facility] (Lab) [address] [place], [address], 10/03/2024 12:53:24 10/04/19 25 10/03/2024 CBC/C OMPLE TE BLD COUNT W/DIF F lymphocytes 44.8 % 16.0-4 7.0 Not Available [facility] (Lab) [address] [place], [address], 10/03/2024 12:53:24 10/04/19 25 10/03/2024 CBC/C OMPLE TE BLD COUNT W/DIF F monocytes 8.4 % 5.0-[address] [facility] (Lab) [address] [place], [address], 10/03/2024 12:53:24 10/04/19 25 10/03/2024 CBC/C OMPLE TE BLD COUNT W/DIF F eosinophils 1.8 % 1.0-7. 0 Not Available [facility] (Lab) [address] [place], [address], 10/03/2024 12:53:24 10/04/19 25 10/03/2024 CBC/C OMPLE TE BLD COUNT W/DIF F basophils 1.6 % 0.0-2. 0 Not Available [facility] (Lab) [address] [place], [address], 10/03/2024 12:53:24 10/04/19 25 10/03/2024 CBC/C OMPLE TE BLD COUNT W/DIF F immature granulocytes 0.3 % 0.00-[address] [facility] (Lab) [address] [place], [address], 10/03/2024 12:53:24 10/04/19 25 10/03/2024 CBC/C OMPLE TE BLD COUNT W/DIF F neutrophils, absolute count 1.65 x10'3 /uL 1.5-8. [address] [facility] (Lab) [address] [place], [address], 10/03/2024 12:53:24 10/04/19 25 10/03/2024 CBC/C OMPLE TE BLD COUNT W/DIF F lymphocytes, absolute count 1.71 x10'3 /uL 1.07-[address] [facility] (Lab) [address] [place], [address], 10/03/2024 12:53:24 10/04/19 25 10/03/2024 CBC/C OMPLE TE BLD COUNT W/DIF F monocytes, absolute count 0.32 x10'3 /uL 0.29-[address] [facility] (Lab) [address] [place], [address], 10/03/2024 12:53:24 10/04/19 25 10/03/2024 CBC/C OMPLE TE BLD COUNT W/DIF F eosinophils, absolute count 0.07 x10'3 /uL 0.02-[address] [facility] (Lab) [address] [place], [address], 10/03/2024 12:53:24 10/04/19 25 10/03/2024 CBC/C OMPLE TE BLD COUNT W/DIF F basophils, absolute count 0.06 x10'3 /uL 0.01-[address] [facility] (Lab) [address] [place], [address], 10/03/2024 12:53:24 10/04/19 25 10/03/2024 CBC/C OMPLE TE BLD COUNT W/DIF F immature granulocytes ,absolute 0.01 x10'3 /uL 0.00-[address] [facility] (Lab) [address] [place], [address], 10/03/2024 12:53:24 10/04/19 25 10/03/2024 CBC/C OMPLE TE BLD COUNT W/DIF F nucleated red blood cells 0.0 % -0 Not Available [facility] (Lab) [address] [place], [address], 10/03/2024 12:53:24 10/04/19 25 10/03/2024 CBC/C OMPLE TE BLD COUNT W/DIF F NRBC# 0.00 x10'3 /uL Not Available [facility] (Lab) [address] [place], [address], 10/03/2024 12:53:24 10/04/19 25 10/03/2024 URINA LYSIS COMPL ETE/I RIS W/RFX color COLORL ESS Not Available [facility] (Lab) [address] [place], [address], 10/03/2024 13:10:30 10/04/19 25 10/03/2024 URINA LYSIS COMPL ETE/I RIS W/RFX appear TURBID abnormal Not Available [facility] (Lab) [address] [place], [address], 10/03/2024 13:10:30 10/04/19 25 10/03/2024 URINA LYSIS COMPL ETE/I RIS W/RFX specific gravity 1.003 1.001- 1.[address] [facility] (Lab) [address] [place], [address], 10/03/2024 13:10:30 10/04/19 25 10/03/2024 URINA LYSIS COMPL ETE/I RIS W/RFX pH 7.0 pH_un its 5.0-9. [address] [facility] (Lab) [address] [place], [address], 10/03/2024 13:10:30 10/04/19 25 10/03/2024 URINA LYSIS COMPL ETE/I RIS W/RFX leukocytes NEGATI VE cal/u L negati ve- Not Available [facility] (Lab) [address] [place], [address], 10/03/2024 13:10:30 10/04/19 25 10/03/2024 URINA LYSIS COMPL ETE/I RIS W/RFX nitrite NEGATI VE negati ve- Not Available [facility] (Lab) [address] [place], [address], 10/03/2024 13:10:30 10/04/19 25 10/03/2024 URINA LYSIS COMPL ETE/I RIS W/RFX protein NEGATI VE mg/dL negati ve- Not Available [facility] (Lab) [address] [place], [address], 10/03/2024 13:10:30 10/04/19 25 10/03/2024 URINA LYSIS COMPL ETE/I RIS W/RFX glucose NORMAL mg/dL normal - Not Available [facility] (Lab) [address] [place], [address], 10/03/2024 13:10:30 10/04/19 25 10/03/2024 URINA LYSIS COMPL ETE/I RIS W/RFX ketones NEGATI VE mg/dL negati ve- Not Available [facility] (Lab) [address] [place], [address], 10/03/2024 13:10:30 10/04/19 25 10/03/2024 URINA LYSIS COMPL ETE/I RIS W/RFX urobilinogen NORMAL mg/dL normal - Not Available [facility] (Lab) [address] [place], [address], 10/03/2024 13:10:30 10/04/19 25 10/03/2024 URINA LYSIS COMPL ETE/I RIS W/RFX bilirubin NEGATI VE mg/dL negati ve- Not Available [facility] (Lab) [address] [place], [address], 10/03/2024 13:10:30 10/04/19 25 10/03/2024 URINA LYSIS COMPL ETE/I RIS W/RFX blood NEGATI VE mg/dL negati ve- Not Available [facility] (Lab) [address] [place], [address], 10/03/2024 13:10:30 10/04/19 25 10/03/2024 URINA LYSIS COMPL ETE/I RIS W/RFX white blood cells 0-8 /i??h pfi?? 0-[address] [facility] (Lab) [address] [place], [address], 10/03/2024 13:10:30 10/04/19 25 10/03/2024 URINA LYSIS COMPL ETE/I RIS W/RFX red blood cells 0-4 /i??h pfi?? 0-[address] [facility] (Lab) [address] [place], [address], 10/03/2024 13:10:30 10/04/19 25 10/03/2024 URINA LYSIS COMPL ETE/I RIS W/RFX bacteria FEW abnormal Not Available [facility] (Lab) [address] [place], [address], 10/03/2024 13:10:30 10/04/19 25 10/03/2024 URINA LYSIS COMPL ETE/I RIS W/RFX squamous epithelial MANY /i??l pfi?? abnormal Not Available [facility] (Lab) [address] [place], [address], 10/03/2024 13:10:30 10/04/19 25 10/03/2024 URINA LYSIS COMPL ETE/I RIS W/RFX tranistional epithelial OCCASI ONAL /i??l pfi?? abnormal Not Available [facility] (Lab) [address] [place], [address], 10/03/2024 13:10:30 10/04/19 25 10/03/2024 COMPR EHENS AZALIA METAB OLIC PANEL sodium 135 mmol/ L 137-[address] [facility] (Lab) [address] [place], [address], 10/03/2024 13:25:20 10/04/19 25 10/03/2024 COMPR EHENS AZALIA METAB OLIC PANEL potassium 4.5 mmol/ L 3.5-5. [address] [facility] (Lab) [address] [place], [address], 10/03/2024 13:25:20 10/04/19 25 10/03/2024 COMPR EHENS AZALIA METAB OLIC PANEL chloride 103 mmol/ L 98-[address] [facility] (Lab) [address] [place], [address], 10/03/2024 13:25:20 10/04/19 25 10/03/2024 COMPR EHENS AZALIA METAB OLIC PANEL carbon dioxide 26 mmol/ L 22-[address] [facility] (Lab) [address] [place], [address], 10/03/2024 13:25:20 10/04/19 25 10/03/2024 COMPR EHENS AZALIA METAB OLIC PANEL anion gap 10.5 mmol/ L 14-[address] [facility] (Lab) [address] [place], [address], 10/03/2024 13:25:20 10/04/19 25 10/03/2024 COMPR EHENS AZALIA METAB OLIC PANEL glucose 99 mg/dL 70-[address] [facility] (Lab) [address] [place], [address], 10/03/2024 13:25:20 10/04/19 25 10/03/2024 COMPR EHENS AZALIA METAB OLIC PANEL BUN 9 mg/dL 8-[address] [facility] (Lab) [address] [place], [address], 10/03/2024 13:25:20 10/04/19 25 10/03/2024 COMPR EHENS AZALIA METAB OLIC PANEL creatinine 0.85 mg/dL 0.66-[address] [facility] (Lab) [address] [place], [address], 10/03/2024 13:25:20 10/04/19 25 10/03/2024 COMPR EHENS AZALIA METAB OLIC PANEL GFR >60 Refer ence Range : [place] [facility] GFR Healt hy Adult : >60 mL/mi n/1.7 3 m2 Chron ic Kidne y Disea se: 15-60 mL/mi n/1.7 3 m2 Kidne y Failu re: <15/m L/min /1.73 m2 www.n iddk. nih.g ov The MDRD study equat ion has not been valid ated in child mary alice <18 years of age; pregn ant women ; the elder ly >85 years of age; or in some racia l or ethni c subgr oups, such as [facility] nics. Outsi de the valid ated donovan eters , estim ated GFR is less accur ate, requi ring clini amira judgm ent on a case- by-ca se basis . Clini amira inter preta tion for other races and ages must be made by the clini bertin. The MDRD study equat ion has not been valid ated for the evalu ation of serum creat inine relat ed to nutri evelin l statu s or medic ation usage . For perso ns <18 years of age, a pedia tric GFR calcu lator is avail able on the [facility] websi te: https ://bc w.kami murphy.o rg/pr ofess ional s/kdo qi/gf r_cal culat or Not Available [facility] (Lab) [address] [place], [address], 10/03/2024 13:25:20 10/04/19 25 10/03/2024 COMPR EHENS AZALIA METAB OLIC PANEL alkaline phosphatase 65 U/L 38-126 Not Available [facility] (Lab) [address] [place], [address], 10/03/2024 13:25:20 10/04/19 25 10/03/2024 COMPR EHENS AZALIA METAB OLIC PANEL alanine aminotransfe rase 19 U/L 0-35 Not Available [facility] (Lab) [address] [place], [address], 10/03/2024 13:25:20 10/04/19 25 10/03/2024 COMPR EHENS AZALIA METAB OLIC PANEL aspartate aminotransfe rase 31 U/L 15-37 Not Available [facility] (Lab) [address] [place], [address], 10/03/2024 13:25:20 10/04/19 25 10/03/2024 COMPR EHENS AZALIA METAB OLIC PANEL bilirubin, total 1.00 mg/dL 0.20-[address] [facility] (Lab) [address] [place], [address], 10/03/2024 13:25:20 10/04/19 25 10/03/2024 COMPR EHENS AZALIA METAB OLIC PANEL calcium 10.4 mg/dL 8.4-10 .[address] [facility] (Lab) [address] [place], [address], 10/03/2024 13:25:20 10/04/19 25 10/03/2024 COMPR EHENS AZALIA METAB OLIC PANEL total protein 8.2 g/dL 6.3-8. [address] [facility] (Lab) [address] [place], [address], 10/03/2024 13:25:20 10/04/19 25 10/03/2024 COMPR EHENS AZALIA METAB OLIC PANEL albumin 5.4 g/dL 3.4-5. [address] [facility] (Lab) [address] [place], [address], 10/03/2024 13:25:20 10/04/19 25 10/03/2024 COMPR EHENS AZALIA METAB OLIC PANEL globulin 2.8 g/dL 2.6-4. [address] [facility] (Lab) [address] [place], [address], 10/03/2024 13:25:20 10/04/19 25 10/03/2024 COMPR EHENS AZALIA METAB OLIC PANEL A/G ratio 1.9 ratio 1.0-2. [address] [facility] (Lab) [address] [place], [address], 10/03/2024 13:25:20 10/04/19 25 10/03/2024 LIPID PANEL cholesterol 176 mg/dL 140-19 9 [facility] ROBY NSUS RECOM MENDA TION FOR DENNY STERO L: ADULT CHILD LOW RISK: <200 <170 BORDE RLINE : <200- 239 ----- HIGH RISK: >240 >[address] [facility] (Lab) [address] [place], [address], 10/03/2024 13:25:24 10/04/19 25 10/03/2024 LIPID PANEL triglyceride s 79 mg/dL 0-150 [facility] ROBY NSUS REPOR T RECOM MENDA TION FOR TRIGL YCERI DOE: ADULT CHILD LOW RISK: <150 ----- BODER LINE: 150-1 99 ----- HIGH RISK: >200 ----- Not [address] [facility] (Lab) [address] [place], [address], 10/03/2024 13:25:24 10/04/19 25 10/03/2024 LIPID PANEL HDL cholesterol 76 mg/dL 40- Not Available [facility] (Lab) [address] [place], [address], 10/03/2024 13:25:24 10/04/19 25 10/03/2024 LIPID PANEL LDL cholesterol, calculated 84 mg/dL 0-130 [facility] ROBY NSUS REPOR T RECOM MENDA TIONS FOR LDL: ADULT CHILD LOW RISK <130 <110 (OPTI MAL LDL) <100 ----- BORDE RLINE : 130-1 59 ----- HIGH RISK: >160 >130 A TRIGL YCERI DE RESUL T >400 INVAL IDATE S THE CALCU LATIO N FOR LDL FRACT IONAT ION - THE LDL RESUL T WILL NOT BE REPOR KELLY. Not Available [facility] (Lab) [address] [place], [address], 10/03/2024 13:25:24 10/04/19 25 10/03/2024 TSH W/REF VIANNEY FT4 TSH with reflex free T4 2.910 uIU/m L 0.465- 4.[address] [facility] (Lab) [address] [place], [address], 10/03/2024 13:30:46 10/04/19 25 10/03/2024 VITAM IN D 25-HY DROXY [id number] 31.7 NG/mL 30-100 Vitam in D Statu s: Defic ient: <20 ng/mL Insuf ficie nt: 20-29 ng/mL Suffi cient : 30-10 0 ng/mL Not Available [facility] (Lab) [address] [place], [address], 10/03/2024 13:37:17 10/04/19 25 10/03/2024 HEMOG LOBIN A1C HA1C 5.4 % 4.0-6. 0 Diabe keke Scree ezra Crite hemal: <5.7% Consi stent with absen ce of diabe keke 5.7-6 .4% Consi stent with incre ased risk for diabe keke (pred iabet es) >OR=6 .5% Consi stent with diabe keke REFER ENCE: Diabe keke Care 2015, 39(Madrigal ppl.1 ):s13 -s22 Not Available [facility] (Lab) [address] [place], [address], 10/03/2024 14:13:36 10/04/1910/03/2024 VITAM IN B12 (DANIELLE CHRIS ) vb12 627 pg/mL 239-[address] [facility] (Lab) [address] [place], [address], 10/03/2024 14:28:26 10/04/19 25 10/03/2024 FOLAT E, SERUM /PLAS MA folate >20.0 NG/mL 2.76-2 0.0 Not Available [facility] (Lab) [address] [place], [address], 10/03/2024 14:28:27 01/16/20 25 01/15/2025 CBC/C OMPLE TE BLD COUNT W/DIF F white blood cells 4.7 x10'3 /uL 4.2-[address] [facility] (Lab) [address] [place], [address], 01/15/2025 12:59:55 01/16/20 25 01/15/2025 CBC/C OMPLE TE BLD COUNT W/DIF F red blood cells 3.91 x10'6 /uL 3.80-[address] [facility] (Lab) [address] [place], [address], 01/15/2025 12:59:55 01/16/20 25 01/15/2025 CBC/C OMPLE TE BLD COUNT W/DIF F hemoglobin 12.7 g/dL 12.0-[address] [facility] (Lab) [address] [place], [address], 01/15/2025 12:59:55 01/16/2001/15/2025 CBC/C OMPLE TE BLD COUNT W/DIF F hematocrit 38.3 % 35.7-[address] [facility] (Lab) [address] [place], [address], 01/15/2025 12:59:55 01/16/20 25 01/15/2025 CBC/C OMPLE TE BLD COUNT W/DIF F mean red cell volume 98.0 fL 82.0-[address] [facility] (Lab) [address] [place], [address], 01/15/2025 12:59:55 01/16/20 25 01/15/2025 CBC/C OMPLE TE BLD COUNT W/DIF F mean red cell hemoglobin 32.5 pg 27.0-[address] [facility] (Lab) [address] [place], [address], 01/15/2025 12:59:55 01/16/2001/15/2025 CBC/C OMPLE TE BLD COUNT W/DIF F mean RBC HGB concentratio n 33.2 g/dL 31.0-[address] [facility] (Lab) [address] [place], [address], 01/15/2025 12:59:55 01/16/2001/15/2025 CBC/C OMPLE TE BLD COUNT W/DIF F red cell distribution width 12.7 % 11.8-[address] [facility] (Lab) [address] [place], [address], 01/15/2025 12:59:55 01/16/20 25 01/15/2025 CBC/C OMPLE TE BLD COUNT W/DIF F platelets 190 x10'3 /uL 150-[address] [facility] (Lab) [address] [place], [address], 01/15/2025 12:59:55 01/16/2001/15/2025 CBC/C OMPLE TE BLD COUNT W/DIF F mean platelet volume 11.5 fL 9.0-[address] [facility] (Lab) [address] [place], [address], 01/15/2025 12:59:55 01/16/2001/15/2025 CBC/C OMPLE TE BLD COUNT W/DIF F neutrophils 50.6 % 39.0-[address] [facility] (Lab) [address] [place], [address], 01/15/2025 12:59:55 01/16/2001/15/2025 CBC/C OMPLE TE BLD COUNT W/DIF F lymphocytes 37.6 % 16.0-[address] [facility] (Lab) [address] [place], [address], 01/15/2025 12:59:55 01/16/2001/15/2025 CBC/C OMPLE TE BLD COUNT W/DIF F monocytes 9.0 % 5.0-[address] [facility] (Lab) [address] [place], [address], 01/15/2025 12:59:55 01/16/2001/15/2025 CBC/C OMPLE TE BLD COUNT W/DIF F eosinophils 1.5 % 1.0-7. [address] [facility] (Lab) [address] [place], [address], 01/15/2025 12:59:55 01/16/20 25 01/15/2025 CBC/C OMPLE TE BLD COUNT W/DIF F basophils 1.1 % 0.0-2. [address] [facility] (Lab) [address] [place], [address], 01/15/2025 12:59:55 01/16/2001/15/2025 CBC/C OMPLE TE BLD COUNT W/DIF F immature granulocytes 0.2 % 0.00-[address] [facility] (Lab) [address] [place], [address], 01/15/2025 12:59:55 01/16/2001/15/2025 CBC/C OMPLE TE BLD COUNT W/DIF F neutrophils, absolute count 2.35 x10'3 /uL 1.5-8. [address] [facility] (Lab) [address] [place], [address], 01/15/2025 12:59:55 01/16/2001/15/2025 CBC/C OMPLE TE BLD COUNT W/DIF F lymphocytes, absolute count 1.75 x10'3 /uL 1.07-[address] [facility] (Lab) [address] [place], [address], 01/15/2025 12:59:55 01/16/2001/15/2025 CBC/C OMPLE TE BLD COUNT W/DIF F monocytes, absolute count 0.42 x10'3 /uL 0.29-[address] [facility] (Lab) [address] [place], [address], 01/15/2025 12:59:55 01/16/2001/15/2025 CBC/C OMPLE TE BLD COUNT W/DIF F eosinophils, absolute count 0.07 x10'3 /uL 0.02-[address] [facility] (Lab) [address] [place], [address], 01/15/2025 12:59:55 06/25/20 25 01/15/2025 CBC/C OMPLE TE BLD COUNT W/DIF F basophils, absolute count 0.05 x10'3 /uL 0.01-[address] [facility] (Lab) [address] [place], [address], 01/15/2025 12:59:55 01/16/20 25 01/15/2025 CBC/C OMPLE TE BLD COUNT W/DIF F immature granulocytes ,absolute 0.01 x10'3 /uL 0.00-[address] [facility] (Lab) [address] [place], [address], 01/15/2025 12:59:55 01/16/2001/15/2025 CBC/C OMPLE TE BLD COUNT W/DIF F nucleated red blood cells 0.0 % -0 Not Available [facility] (Lab) [address] [place], [address], 01/15/2025 12:59:55 01/16/20 25 01/15/2025 CBC/C OMPLE TE BLD COUNT W/DIF F NRBC# 0.00 x10'3 /uL Not Available [facility] (Lab) [address] [place], [address], 01/15/2025 12:59:55 01/16/2001/15/2025 PARAT HYROI D HORM (PTH) INT.W /CA intact parathyroid hormone 32.1 pg/mL 24- Not Available [facility] (Lab) [address] [place], [address], 01/15/2025 14:00:07 01/16/2001/15/2025 PARAT HYROI D HORM (PTH) INT.W /CA calcium 9.4 mg/dL 8.4-[address] [facility] (Lab) [address] [place], [address], 01/15/2025 14:00:07 06/11/20 06/11/2025 imagi ng/di agnos tic resul t No observ ation record ed. [facility] [address], [place], [address], 06/11/2025 18:22:23 Result Notes None recorded. Problems Name Problem SNOMED Code Status Onset Date Resolution Date Notes Provider Name and Address Organization Details Recorded Time Pain of bilateral hands 6537536305933 9109 Active 2020 Not Available [facility] 3 23:30:04 History of cataract 830135627 Active 2020 Not Available [facility] 3 23:30:04 Anxiety disorder 966021206 Active 2020 Not Available [facility] 3 23:30:04 Hyperlipid emia 77213454 Active 2020 Not Available [facility] 3 23:30:05 Anti-nucle ar factor detected 722743363 Active 2020 Not Available [facility] 3 23:30:04 Chronic neck pain 0629532249242 Active 2021 Not Available [facility] 3 23:30:04 Chronic thoracic back pain 8725722961613 03 Active 2021 Not Available [facility] 3 23:30:04 Chronic low back pain 642428597 Active 2021 Not Available [facility] 3 23:30:05 Motion sickness 73843014 Active 2021 Not Available [facility] 3 23:30:05 Gastroesop hageal reflux disease without esophagiti s 457215115 Active 2021 Not Available [facility] 3 23:30:05 Epigastric discomfort 867067579 Active 2022 Not Available [facility] 3 23:30:04 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 2022 Daniel Major MD [address], [place], [address] , [facility] 3 09:22:44 Sensation of irritation of eye proper 398058302 Active 2024 Daniel Major MD [address] [place] [address], [place], [address] , [facility] [employer] [facility] [employer] [facility] 5 09:09:52 Blephariti s of right eyelid 0686238429967 03 Active 2024 Daniel Major MD [address], [place] [address], [place], [address] , [employer] [facility] [employer] [facility] 5 09:10:06 Pigmented skin lesion 566257238 Active 2024 Daniel Major MD [address], [place] [address], [place], [address] , [employer] [facility] [employer] [facility] 5 16:51:53 Leukopenia 76768210 Active 2024 Daniel Major MD [address], [place] [address], [place], [address] , [employer] [facility] [employer] 5 09:16:32 Problem Notes None recorded. Procedures Surgical History Date Name Laterality Status Provider Name and Address Organization Details Recorded Time 9 Date of Last Pap Smear completed Not Available [facility] 09/21/2022 23:29:28 cataract surgery completed Not Available [facility] 09/21/2022 23:29:30 [employer]ESS O[employer] Procedure completed Not Available [facility] 09/21/2022 23:29:30 Imaging Results None recorded. Procedure Notes None recorded. Medical Equipment None Reported. Allergies Allergen ID Allergen Name Allergen Category Reaction Reaction Severity Criticality Documentation Date Start Date Code Code System Note Provider Name and Address Organization Details Recorded Time 11914 Daypro medicatio n Not available Not available Not available 09/21/2022 32904 1 RxNorm Pt has taken Aleve , Motri n witho ut any probl em. Not Available [facility] 3 23:31:00 55195 amoxicill in medicatio n rash Not available Not available 09/21/2022 723 RxNorm Not Available [facility] 3 23:31:00 Medications Name Sig Start Date Stop Date Status Note LastModified by Organization Details LastModified Time tizanidine 2 mg tablet Take 1 tablet every 12 hours by oral route as needed for 30 days. 10/13 completed Not Available Not Available Not Available atorvastati n 10 mg tablet TAKE 1/2 TABLET BY MOUTH EVERY DAY AT BEDTIME active Not Available Not Available No t Available azithromyci n 250 mg tablet TAKE 2 TABLET BY MOUTH TODAY. THEN TAKE 1 TABLET BY MOUTH FOR THE NEXT 4 DAYS. 10/02 completed Not Available Not Available Not Available ofloxacin 0.3 % eye drops active Not Available Not Available Not Available sertraline 100 mg tablet Take 1 tablet every day by oral route in the morning for 90 days. 2024 active Not Available Not Available Not Avai lable meloxicam 7.5 mg tablet TAKE 1 TABLET BY MOUTH EVERY DAY NEEDED 10/13 completed Not Available Not Available Not Available cephalexin 500 mg capsule TAKE 1 CAPSULE BY MOUTH THREE TIMES DAILY FOR 7 DAYS 10/02 completed Not Available Not Available Not Available pantoprazol e 40 mg tablet,henry yed release TAKE 1 TABLET BY MOUTH EVERY DAY IN THE MORNING 01/12 completed Not Available Not Available Not Available buspirone 10 mg tablet TAKE 1 TABLET BY MOUTH EVERY 12 HOURS NEEDED 2024 active Not Available Not Available Not Avai lable buspirone 7.5 mg tablet TAKE 1 TABLET BY MOUTH EVERY 12 HOURS NEEDED active Not Available Not Available No t Available scopolamine 1 mg over 3 days transdermal patch APPLY 1 PATCH TOPICALLY TO THE SKIN EVERY 72 HOURS FOR 5 DAYS DIRECTED 07/26 completed Not Available Not Available Not Available ondansetron 4 mg disintegrat ing tablet Place 1 tablet every 6-8 hours by transling ual route as needed for 5 days. 07/26 completed Not Available Not Available Not Available sertraline 50 mg tablet TAKE 1 AND 1/2 TABLETS BY MOUTH EVERY DAY IN THE MORNING 01/12 completed Not Available Not Available Not Available PreviDent 5000 Enamel Protect 1.1 %-5 % dental paste APPLY A SMALL AMOUNT TO TOOTHBRUS H AND BRUSH THOROUGHL Y DAILY FOR 2 MINUTES THEN SPIT AND RINSE MOUTH 10/02 completed Not Available Not Available Not Available [employer] COVID-19 Ag Self Test kit Use as Directed on the Package 10/13 completed Not Available Not Available Not Available Vitals Date Recorded Body height Body mass index (BMI) Body weight Body temperature Oxygen saturation Oxygen saturation in Arterial blood by Pulse oximetry Heart rate Systolic And Diastolic Provider Name and Address Organization Details Last Updated DateTime 5 165.1 cm 21.8 kg/m2 48942.6 5 g 97.9 [degF] 97 % 97 % 60 /min 120/80 mm[Hg] Praveena Benitez RN [facility] [employer] [facility] 5 09:07:04 Date Recorded Body height Body mass index (BMI) Body weight Body temperature Oxygen saturation Oxygen saturation in Arterial blood by Pulse oximetry Heart rate Systolic And Diastolic Provider Name and Address Organization Details Last Updated DateTime 5 165.1 cm 21.7 kg/m2 25440.0 6 g 97.9 [degF] 96 % 96 % 70 /min 122/82 mm[Hg] Praveena Benitez RN [facility] [employer] 5 16:46:36 Date Recorded Body height Body mass index (BMI) Body weight Body temperature Oxygen saturation Oxygen saturation in Arterial blood by Pulse oximetry Heart rate Systolic And Diastolic Provider Name and Address Organization Details Last Updated DateTime 5 165.1 cm 22.3 kg/m2 51518.0 8 g 97.6 [degF] 96 % 96 % 63 /min 120/70 mm[Hg] Praveena Benitez RN [facility] [employer] 5 09:31:08 Date Recorded Heart rate Provider Name an d Address Organization Details Last Updated DateTime 01/20/2025 90 /min Mike Albrecht [address], [address], [place] [employer] [facility] [employer] 01/20/2025 10:40:23 Date Recorded Body height Body mass index (BMI) Body weight Body temperature Oxygen saturation Oxygen saturation in Arterial blood by Pulse oximetry Systolic And Diastolic Provider Name and Address Organization Details Last Updated DateTime 5 165.1 cm 23 kg/m2 08118.7 5 g 97.2 [degF] 98 % 98 % 110/68 mm[Hg] Praveena Benitez RN [facility] [employer] 5 10:33:17 Social History Question Answer Notes LastModified by Organizat ion Details LastModified Time Tobacco Smoking Status Never Smoker Not Available [facility] 09/21/2022 23:28:48 Do You Have An Advance Directive? No [id number] Information not available 09/21/2022 Do You Wear A Helmet When Biking? Yes MIGRATION.317993 2789 Information not available 09/21/2022 What Is Your Level Of Caffeine Consumption? Moderate 2 Mini Sodas Per Day One Cup Coffee Every Other Day [email or web address] Information not available 10/02/2024 In The 14 Days Before Symptom Onset, Have You Had Close Contact With A Laboratory-confir med COVID-19 While That Case Was Ill? No MIGRATION.[id number] 1627 Information not available 09/21/2022 In The 14 Days Before Symptom Onset, Have You Had Close Contact With A Person Who Is Under Investigation For COVID-19 While That Person Was Ill? No MIGRATION.[id number] 6398 Information not available 09/21/2022 What Type Of Diet Are You Following? REGULAR MIGRATION.[id number] 5373 Information not available 09/21/2022 Have There Been Any Changes To Your Family Or Social Situation? No MIGRATION.564214 9322 Information not available 09/21/2022 Are There Any Guns Present In Your Home? No MIGRATION.367866 3808 Information not available 09/21/2022 Do You Use Insect Repellent Routinely? No MIGRATION.741738 9472 Information not available 09/21/2022 Do You Have A Medical Power Of Obstetrician Gynecologist? No MIGRATION.388916 3445 Information not available 09/21/2022 Have You Ever Been Counseled For Unhealthy Alcohol Use? No MIGRATION.470445 1302 Information not available 09/21/2022 Do You Have Any Pets? No MIGRATION.791146 5788 Information not available 09/21/2022 What Is Your Relationship Status? MIGRATION.270470 0362 Information not available 09/21/2022 Do You Use Your Seat Belt Or Car Seat Routinely? Yes MIGRATION.754074 0593 Information not available 09/21/2022 Do You Have Smoke And Carbon Monoxide Detectors In Your Home? Yes MIGRATION.107560 4868 Information not available 09/21/2022 Are You Passively Exposed To Smoke? No MIGRATION.479120 0862 Information not available 09/21/2022 Are There Any Smokers In Your House? No MIGRATION.562125 0446 Information not available 09/21/2022 Do You Participate In Social Media? No MIGRATION.409285 1570 Information not available 09/21/2022 Do You Use Sunscreen Routinely? Yes MIGRATION.510329 7029 Information not available 09/21/2022 Has Tobacco Cessation Counseling Been Provided? No MIGRATION.013786 9299 Information not available 09/21/2022 Have You Recently Traveled Abroad? No MIGRATION.397388 0218 Information not available 09/21/2022 Are You Currently In School? No MIGRATION.861339 6858 Information not available 09/21/2022 Do You Have Any Dietary Restrictions? No MIGRATION.553510 1986 Information not available 09/21/2022 Sex: Female Functional Status Question Answer Note LastModified by [employer] Details LastModified Time What is your level of alcohol consumption? Occasional MIGRATION.[id number] 26 Information not available 09/21/2022 What is your exercise level? Moderate MIGRATION.[id number] 26 Information not available 09/21/2022 Mental Status Question Answer Note LastModified by [email or web address] Details LastModified Time Do you feel stressed (tense, restless, nervous, or anxious, or unable to sleep at night)? [id number] MIGRATION.[id number] 6 Information not available 09/21/2022 Family History Relationship Description Onset Age of this Age Resolved Age Notes LastModified by Organization Details LastModified Time Maternal Grandmother Alzheimer's disease MIGRATION.645 [id number] Not available 09/21/2022 23:29:30 Paternal Grandfather Hypertensive disorder MIGRATION.467 [id number] Not available 09/21/2022 23:29:30 Paternal Grandfather Diabetes mellitus MIGRATION.813 [id number] Not available 09/21/2022 23:29:30 Paternal Grandfather Family history of stroke MIGRATION.326 [id number] Not available 09/21/2022 23:29:30 Mother Hypertensive disorder MIGRATION.967 [id number] Not available 09/21/2022 23:29:30 Sister Hypertensive disorder MIGRATION.145 [id number] Not available 09/21/2022 23:29:30 Maternal Aunt Malignant neoplasm of brain MIGRATION.856 [id number] Not available 09/21/2022 23:29:30 Medical History Condition Response ARTHRITIS Y ANXIETY DISORDER Y DEPRESSION (INCLUDING POST ) Y HIGH CHOLESTEROL / HYPERLIPIDEMIA Y Gynecological History Statement/Question Response Abnormal Pap N Date of LMP Menses Monthly N Date of Last Pap 06/16/2021 Date of Last Pap Smear 12/22/2018 Current Control Method IUD Age at Menarche 16 Desired Control Method IUD Obstetrics History GPAL:G 3 P 2 0 1 2 Type Value Full Term 2 Spontaneous 1 Living 2 Total 3 Immunizations Vaccine Type Date Status Note Provider Nam e and Address Organization Details Recorded Time Tdap 03/31/2021 completed Not Available [facility] 09/21/2022 23:30:59 Influenza, split virus, quadrivalent, PF 04/21/2022 completed Not Available [facility] 23:30:59 Influenza, split virus, quadrivalent, PF 04/15/2021 completed Not Available [facility] 23:30:59 Influenza, split virus, quadrivalent, PF 03/30/2023 completed NAOMI Hartman PA [employer] [facility] 03/30/2023 17:18:58 Past Encounters Encounter ID Performer Location Encounter Start Date Encounter Closed Date Diagnosis/Indication Diagnosis SNOMED-CT Code Diagnosis ICD10 Code Diagnosis IMO Codes Diagnosis Note [id number] Daniel Major MD [address] [address] 03/31/2021 00:00:00 03/31/2021 15:46:11 [id number] Daniel Major MD [address] [address] 04/01/2021 00:00:00 04/01/2021 09:47:35 [id number] Daniel Major MD [address] [address] 04/15/2021 00:00:00 04/15/2021 10:50:20 [id number] Daniel Major MD [address] [address] 05/13/2021 00:00:00 05/13/2021 10:21:16 [id number] Daniel Major MD [facility] [address] [place] [address] 06/10/2021 00:00:00 06/10/2021 09:47:21 [id number] [facility] _ATHENA_M IGRATION_ DEFAULT_1 _1 , 06/16/2021 00:00:00 06/16/2021 13:35:20 [id number] Daniel Major MD [facility] [address] [place] [address] 07/05/2021 00:00:00 07/06/2021 09:14:06 [id number] Daniel Major MD [facility] [address] [facility] [address] 07/08/2021 00:00:00 07/08/2021 09:59:12 [id number] Daniel Major MD [facility] [address] [facility] [place] [address] 10/12/2021 00:00:00 10/12/2021 10:22:04 [id number] Daniel Major MD [facility] [address] [facility] [place] [address] 10/26/2021 00:00:00 10/26/2021 11:29:17 [id number] Daniel Major MD [facility] [address] [facility] [place] [address] 11/30/2021 00:00:00 11/30/2021 10:00:51 [id number] Daniel Major MD [facility] [address] [facility] [place] [address] 04/05/2022 00:00:00 04/05/2022 10:05:37 [id number] Daniel Major MD [facility] [address] [facility] [place] [address] 04/21/2022 00:00:00 04/21/2022 10:23:05 [id number] Daniel Major MD [address] [address] 07/26/2022 00:00:00 07/26/2022 09:20:41 [id number] Daniel Major MD [address] [address] 08/16/2022 00:00:00 08/16/2022 16:13:19 [id number] Daniel Major MD [address] [address] 10/13/2022 16:20:33 10/13/2022 16:36:46 Anxiety disorder 847834091 F41.9 Gastroesop hageal reflux disease without esophagitis 468077760 K21.9 Hyperlipidemia 19050886 E78.5 Improved [id number] Daniel Major MD [address] [address] 01/12/2023 08:54:30 01/12/2023 09:25:03 Hyperlipidemia 80205068 E78.5 Improved - Diet controlled Anxiety disorder F41.9 Gastroesop hageal reflux disease without esophagitis 706859834 K21.9 [id number] Daniel Major MD [address] [address] 03/30/2023 08:27:50 03/30/2023 09:31:51 Anxiety disorder 682172294 F41.9 Gastroesop hageal reflux disease without esophagitis 929451931 K21.9 Hyperlipidemia 58265424 E78.5 Improved - Diet controlled Adult heal th examination 136653539 Z00.00 Chronic neck pain 861392 2751 107 M54.2 Diabetes m ellitus screening 848322100 Z13.1 Administra tion of influenza vaccine 70721021 Z23 Screening mammography 24 783061 Z12.31 [id number] Daniel Major MD [facility] [address] 04/20/2023 09:10:15 04/20/2023 09:33:55 Anxiety disorder 860414054 F41.9 Gastroesop hageal reflux disease without esophagitis 532612079 K21.9 stable Hyperlipidemia 12759276 E78.5 Chronic neck pain 665077 2528 107 M54.2 stable Idiopathic hypercalcemia 828466988 E83.52 [id number] Judi Douglas NP [address] [address] 07/13/2023 08:53:53 07/13/2023 15:06:10 [id number] Daniel Major MD [address] [address] 07/27/2023 15:30:17 07/27/2023 15:52:29 Hyperlipidemia 61083238 E78.5 Idiopathic hypercalcemia 338350124 E83.52 resolved Anxiety disorder F41.9 Gastroesop hageal reflux disease without esophagitis 342599701 K21.9 stable Chronic neck pain 502379 7372 107 M54.2 stable [id number] Daniel Major MD [address] [address] 11/09/2023 11:29:38 11/09/2023 11:44:20 Idiopathic hypercalcemia 457251452 E83.52 resolved Hyperlipidemia 73784474 E78.5 Anxiety disorder F41.9 Gastroesop hageal reflux disease without esophagitis 294396876 K21.9 stable Chronic neck pain 835739 7065 107 M54.2 stable [id number] Daniel Major MD [address] [address] 07/31/2024 09:30:43 07/31/2024 10:00:38 Hyperlipidemia 45176103 E78.5 Anxiety disorder F41.9 Gastroesop hageal reflux disease without esophagitis 425434564 K21.9 stable Chronic neck pain 166911 3011 107 M54.2 stable [id number] Daniel Major MD [address] [address] 09/03/2024 08:47:26 09/03/2024 09:11:58 Sensation of irritation of eye proper 471877538 H57.89 Rt - F/u with eye doctor in few days as directed. Blephariti s of right eyelid 5523045700 58865 H01.161 [id number] Daniel Major MD [address] [address] 10/02/2024 16:25:55 10/02/2024 17:40:30 Anxiety disorder 683083983 F41.9 Hyperlipidemia 15774291 E78.5 Gastroesop hageal reflux disease without esophagitis 294170623 K21.9 stable Chronic neck pain 611299 3309 107 M54.2 stable Adult heal th examination 246845925 Z00.00 Diabetes m ellitus screening 845068088 Z13.1 Pigmented skin lesion 20 8871552 L81.9 [id number] Daniel Major MD [address] [address] 10/03/2024 09:09:49 10/04/2024 09:30:45 [id number] Daniel Major MD [address] [address] 10/24/2024 09:23:49 10/24/2024 09:46:46 Anxiety disorder 406875653 F41.9 Hyperlipidemia 11189672 E78.5 Gastroesop hageal reflux disease without esophagitis 231408292 K21.9 stable Chronic neck pain 407609 7317 107 M54.2 stable Pigmented skin lesion 20 4346941 L81.9 Leukopenia 65517882 D72. 819 Idiopathic hypercalcemia 957757504 E83.52 [id number] Daniel Major MD [address] [address] 01/20/2025 10:24:09 01/20/2025 10:39:36 Leukopenia 49427445 D72.819 resolved Idiopathic hypercalcemia 766685070 E83.52 resolved Hyperlipidemia 95001861 E78.5 Anxiety disorder F41.9 Gastroesop hageal reflux disease without esophagitis 943821303 K21.9 stable Chronic neck pain 373828 1897 107 M54.2 stable Pigmented skin lesion 20 3963676 L81.9 Health Concerns Section Related Observation LastModified by Organization Detai ls LastModified Time None Recorded Concern Status LastModified by Organization Details LastModified Time None Recorded Advance Directives Directive N: Payers Insurance Date Sequence Insurance Name Policy Number Policy Godfrey Covered Member ID Godfrey Member ID Guarantor Name 03/30/2023 1 [employer] (POS) [id number] Howie Castellanos [id number] Rizwana Castellanos 01/17/2025 1 [employer] (POS II) [id number] Howie Castellanos [id number] Rizwana Castellanos Notes Date Note Type Note Provider Name and Address Organization Details Recorded Time 09/03/2024 text/html ACV: C/o Rt lower eyelid area rash and swelling for last 3 days. Denies any eye discharge, no insect bite. No vision changes, no FB exposure, no other concern. Daniel Major MD [address], [place] [address], [place], [address], [employer] 09/03/2024 09:19:18 10/02/2024 text/html Pt is here for her annual exam. Doing overall well. Denies any problem with meds. Denies any new concern. Doing overall well with her anxiety. Her anxiety is improved about 90-95% compared to before. Denies any problem with meds. Denies any mood swings/SI/HI.Pt has seen GI for her GERD and got multiple testing and EGD done and it all came back good. Pt is doing much better now and she is not taking PPI daily either.Doing overall much better with her chronic neck and back pain and has done PT for it. Daniel Major MD [address], [address], [place], [address], [place] 10/02/2024 17:00:43 10/24/2024 text/html Pt is here for f/u on her annual labs. Doing overall well. Denies any problem with meds. Denies any new concern. Doing overall well with her anxiety. Denies any problem with meds. Denies any mood swings/SI/HI.Pt has seen GI for her GERD and got multiple testing and EGD done and it all came back good. Pt is doing much better now and she is not taking PPI daily either.Doing overall much better with her chronic neck and back pain and has done PT for it. Daniel Major MD [address] [facility], [address], [place], [address], [employer] 10/24/2024 09:40:07 01/20/2025 text/html Pt is here for f/u on her labs and chronic conditions. Doing overall well. Denies any problem with meds. Denies any new concern. Doing overall well with her anxiety. Denies any problem with meds. Denies any mood swings/SI/HI.Pt has seen GI for her GERD and got multiple testing and EGD done and it all came back good. Pt is doing much better now and she is not taking PPI daily either.Doing overall much better with her chronic neck and back pain and has done PT for it. Pt is f/u with Derm for her skin lesions and its all good. Daniel Major MD [address] [facility], [address], [place], [address], [employer] 01/20/2025 10:41:54 OBGyn Episode No OBEpisode recorded.
--- OUTSIDE RECORDS SUMMARY | 2025-06-11 22:09 | XMS_ITS | Clinical Summary ---
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 Gender Identity Not on file Sexual Orientation Not on file Plan of Treatment Health Maintenance Due Date Last Done Comments Hepatitis C Virus (HCV) Screening 1982 TdaP Immunization 1982 Hepatitis B Immunization (1 of 3 - 19+ 3-dose series) 2001 Pap Smear 10/23/2003 Human Papillomavirus (HPV) Immunization (1 - 3-dose SCDM series) 2009 Cervical Cancer Screening (CCS) 2012 HPV/Cotest 2012 Influenza Immunization (#1) 2025 SARS-COV-2 Immunization ( season) 2025 Respiratory Syncytial Virus (RSV) Immunization (Adult) (1 - 1-dose 75+ series) 2057 Meningococcal Immunization (ACWY) Aged Out No longer eligible based on patient's age to complete this topic Pneumococcal Immunization Combined Aged Out No longer eligible based on patient's age to complete this topic Rotavirus Immunization Aged Out No lo nger eligible based on patient's age to complete this topic Insurance [employer] on file
--- OUTSIDE RECORDS SUMMARY | 2025-06-11 22:09 | XMS_ITS | Clinical Summary ---
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 Gender Identity Not on file Sexual Orientation Not on file Plan of Treatment Health Maintenance Due Date Last Done Comments Cervical Cancer Screening Pa p Smear (Age 30 to 64) Every 3 Years 1982 Annual Physical 1985 Hepatitis C 2000 DTaP, Tdap and Td Vaccines ( 1 - Tdap) 2001 Hepatitis B Vaccines (1 of 3 - 19+ 3-dose series) 2001 HPV Vaccines (1 - 3-dose SCD M series) 2009 Cervical Cancer Screening Pa p with HPV Testing (Age 30 to 64) Every 5 Years 2012 Cervical Cancer Screening wi th HPV 2012 Mammogram Screening 2022 COVID-19 Vaccine ( - 2024-2 6 season) 2025 10/01/2020, 09/10/2020 Influenza Adult (#1) 2025 Hepatitis A Vaccines Aged Out No long er eligible based on patient's age to complete this topic Meningococcal B Vaccine Aged Out No l onger eligible based on patient's age to complete this topic Meningococcal Vaccine Aged Out No doreen gosia eligible based on patient's age to complete this topic Pneumococcal Vaccine: Pediatrics (0 to 5 Years) and At-Risk Patients (6 to 49 Years) Aged Out No longer eligible b ased on patient's age to complete this topic RSV Immunizations Under 20 Months Aged Out No longer eligible b ased on patient's age to complete this topic
== END 2025-06-11 14:29 | disposition home or self-care (01) ==
LOC: ANHFOHIMG 14:29
PROVIDERS: PCP Family Medicine; Visit Provider Obstetrics & Gynecology
DX: Z12.31 Encounter for screening mammogram for malignant neoplasm of breast (principal)
CPT/HCPCS: 77063; 77067